=== PATIENT | male | born 1975 | race Caucasian/White ===

== ENCOUNTER 2016-12-16 00:25 | Emergency (ER) | payer OTHER ==
[~2016-12-16] VITALS: Ht 170.2 cm; Wt 95.5 kg
[2016-12-16 01:03] VITALS: Ht 170.2 cm; Wt 95.5 kg
[2016-12-16] MEDS ORDERED: ACET/BUTAL/CAFF/CODEINE CAP PO ONE (04:30)
[2016-12-16] MEDS ORDERED: MECLIZINE 12.5 MG TAB PO ONE (04:30)
[2016-12-16] MEDS ORDERED: advil (04:45)
--- NOTE | 2016-12-16 04:46 | ERD ---
ER Documentation Chief Complaint Date/Time DATE: 12/16/16 TIME: 04:43 Chief Complaint HEADACHE +DIZZINESS +N/V SINCE YESTERDAY HPI 41-year-old male presents here in emergency department for complaints of headache, dizziness, nausea vomiting that started yesterday. Patient also wasn' t having bodyaches. Patient's clean of headache throbbing pain, 6/10 scale, dizziness, describes it as a spinning sensation worse upon movement. Patient denies any numbness or tingling. Patient denies any head injury. Patient took Tylenol with Pain with Mild Relief. ROS All systems reviewed and are negative except as per history of present illness. Medications Home Meds Reported Medications [advil] Unknown Strength No Conflict Check 12/16/16 Allergies Allergies: Coded Allergies: No Known Allergy (Unverified , 07/19/14) PMhx/Soc Hx Neurological Disorder: Yes (EPILEPSY) Hx Miscellaneous Medical Probl: No Hx Alcohol Use: No Hx Substance Use: No Hx Tobacco Use: No Smoking Status: Never smoker FmHx Family History: No coronary disease, No diabetes, No other Physical Exam Vitals Vital Signs Date Time Temp Pulse Resp B/P Pulse Ox O2 Delivery O2 Flow Rate FiO2 12/16/16 01:03 98.1 63 18 129/78 97 Physical Exam GENERAL: The patient is well developed and appropriate for usual state of health, in no apparent distress. CHEST: Clear to auscultation bilaterally. There are no rales, wheezes or rhonchi. HEART: Regular rate and rhythm. No murmurs, clicks, rubs or gallops. No S3 or S4. ABDOMEN: Soft, nontender and nondistended. Good bowel sounds. No rebound or guarding. No gross peritonitis. No gross organomegaly or masses. No Serrano sign or McBurney point tenderness. BACK: No midline or flank tenderness. EXTREMITIES: Equal pulses bilaterally. There is no peripheral clubbing, cyanosis or edema. No focal swelling or erythema. Full range of motion. Grossly neurovascularly intact. NEURO: Alert and oriented. Cranial nerves 2-12 intact. Motor strength in all 4 extremities with 5/5 strength. Sensation grossly intact. Normal speech and gait. negative Romberg sign. Negative pronator drift. SKIN: There is no apparent rash or petechia. The skin is warm and dry. HEMATOLOGIC AND LYMPHATIC: There is no evidence of excessive bruising or lymphedema. No gross cervical, axillary, or inguinal lymphadenopathy. Results 24 hrs Current Medications Medications (Trade) Dose Ordered Sig/Daija Route PRN Reason Start Time Stop Time Status Last Admin Dose Admin Meclizine HCl (Antivert) 25 mg ONCE ONCE PO 12/16/16 04:30 12/16/16 04:31 DC 12/16/16 04:42 Acetam/Butalbital/ Caffeine/Codeine (Fioricet/ Codeine) 1 cap ONCE ONCE PO 12/16/16 04:30 12/16/16 04:31 DC 12/16/16 04:42 Patient was given medication for pain here in emergency department, after treatment, patient verbalized feeling much better. Patient's pain is improved.meclizine was given here in emergency department. Verbalized feeling much better afterwards. PROCEDURE: CT BRAIN WITHOUT CONTRAST CLINICAL INDICATION: 41-year-old male with headaches. TECHNIQUE: The study was performed utilizing a [employer] VCT 64-slice CT scanner. Direct axial sections were obtained from the foramen magnum to the vertex without the use of intravenous contrast material. Sagittal and coronal reformations were obtained. One or more the following dose reduction techniques were utilized: automated exposure control, adjustment of the mA and/or kV according to patient's size or use of iterative reconstruction technique. The images were viewed on a PACS workstation. CTD/vol = 44.6 mGy; Total Exam DLP = 20.2 mGy-cm. COMPARISON: None. FINDINGS: The ventricles have a normal size, shape and position. There is no evidence for mass effect or midline shift. There are no intracranial areas of abnormal attenuation. There is no evidence for acute intra or extra-axial blood. The bony calvarium is intact. The partially visualized paranasal sinuses and mastoid air cells are without significant abnormal soft tissue. IMPRESSION: Unremarkable noncontrast CT scan of the brain. .Marco A Hedrick MD, Date Time Electronically viewed and signed by .Marco A Hedrick MD, MD on 12/16/2016 04:52 .M/ CC: SHAYNE PRUETT NP Procedures/MDM Medical Decision Making: Patient symptoms are consistent with migraine headache , possible tension headache.Can be also viral, patient's dizziness can be from benign positional vertigo There is low suspicion for neurological emergencies at this time since patients neurologic exam is normal. Patient did not have any altered level consciousness, vomiting, changes in balance or memory and did not have any head injury. Patients CT scan of the head does not show any neurological emergencies at this time. Rx: Fioricet with codeine, Meclizine. advised to follow-up with primary care doctor in 2-3 days for further evaluation of symptoms. Patient was advised to return to emergency department for any worsening symptoms. Dispostion: Home. Stable Departure Diagnosis: Primary Impression: Headache Headache type: unspecified Headache chronicity pattern: acute headache Intractability: not intractable Qualified Code: R51 - Acute nonintractable headache, unspecified headache type Condition: Stable Patient Instructions: Self-Care for Headaches Additional Instructions: Rx: Fioricet with codeine, Meclizine. advised to follow-up with primary care doctor in 2-3 days for further evaluation of symptoms. Patient was advised to return to emergency department for any worsening symptoms. SHAYNE PRUETT NP Dec 16, 2016 04:46
--- NOTE | 2016-12-16 04:53 | RADRPT ---
PROCEDURE: CT BRAIN WITHOUT CONTRAST CLINICAL INDICATION: 41-year-old male with headaches. TECHNIQUE: The study was performed utilizing a [employer] VCT 64-slice CT scanner. Direct axia l sections were obtained from the foramen magnum to the vertex without the use of intravenous contra st material. Sagittal and coronal reformations were obtained. One or more the following dose reduct ion techniques were utilized: automated exposure control, adjustment of the mA and/or kV according t o patient's size or use of iterative reconstruction technique. The images were viewed on a PACS [employer]. CTD/vol = 44.6 mGy; Total Exam DLP = 20.2 mGy-cm. COMPARISON: None. FINDINGS: The ventricles have a normal size, shape and position. There is no evidence for mass effect or midl ine shift. There are no intracranial areas of abnormal attenuation. There is no evidence for acute intra or extra-axial blood. The bony calvarium is intact. The partially visualized paranasal sinuse s and mastoid air cells are without significant abnormal soft tissue. IMPRESSION: Unremarkable noncontrast CT scan of the brain. .Marco A Hedrick MD, MD Date Time Electronically viewed and signed by .Marco A Hedrick MD, on 12/16/2016 04:52 .Hood/
[2016-12-16] MEDS ORDERED: MECL-77 PO (05:21)
[2016-12-16] MEDS ORDERED: ABCC1C PO (05:21)
== END 2016-12-16 05:42 | disposition home or self-care (01) ==
LOC: FTE 00:25
DX: R51 Headache (principal)
CPT/HCPCS: 70450